=== PATIENT | male | born 1975 | race Caucasian/White ===

== ENCOUNTER 2019-11-01 11:53 | Emergency (ER) | payer OTHER, SELFPAY ==
[~2019-11-01] VITALS: Ht 177.8 cm; Wt 73.8 kg
--- NOTE | 2019-11-01 12:12 | NUR ---
Pt here for difficulty swallowing and pain swallowing. Pt reports no trauma but did report that he had food stuck in his throat 9 months ago and needed a procedure to remove it but never followed up with his GI. Pt reports hx of asthma and has no other complaints. Pt has even unlabored respirations and no abnormal breathing sounds heard from airway at this time.
[2019-11-01] MEDS ORDERED: FAMOTIDINE 20 MG TABLET ONE (12:51)
--- NOTE | 2019-11-01 12:53 | NUR ---
PT MEDICATED PER EMAR. PT TOLERATED WELL.
[2019-11-01] MEDS ORDERED: FAMOTIDINE 20 MG TABLET PO ONE (13:00)
--- NOTE | 2019-11-01 13:05 | NUR ---
PT IN XRAY AT THIS TIME.
--- NOTE | 2019-11-01 13:14 | NUR ---
PT BACK TO ROOM FROM XRAY AT THIS TIME.
--- NOTE | 2019-11-01 13:18 | NUR ---
lab at bedside.
[2019-11-01 13:32] LABS: BASOPHILS # (AUTO) 0.04 x10^3/uL (0-0.1); BASOPHILS % (AUTO) 0 % (0-1); EOSINOPHILS # (AUTO) 0.25 x10^3/uL (0-0.4); EOSINOPHILS % (AUTO) 3 % (1-7); LYMPHOCYTES # (AUTO) 1.36 x10^3/uL (1-3.4); LYMPHOCYTES % (AUTO) 15 % (22-44); MD NO; MEAN CORPUSCULAR HEMOGLOBIN 31.4 pg (27.5-34.5); MEAN CORPUSCULAR HGB CONC 33.5 g/dL (33.2-36.2); MEAN CORPUSCULAR VOLUME 93.7 fL (81-97); MEAN PLATELET VOLUME 8.5 fL (7.4-10.4); MONOCYTES # (AUTO) 0.79 x10^3/uL (0.2-0.8); MONOCYTES % (AUTO) 9 % (2-9); NEUTROPHILS # (AUTO) 6.72 x10^3/uL (1.8-6.8); NEUTROPHILS % (AUTO) 73 % (42-75); PLATELET COUNT 190 x10^3/uL (130-400); RED BLOOD COUNT 5.05 x10^6/uL (4.38-5.82); RED CELL DISTRIBUTION WIDTH 12.8 % (9.4-14.8)
[2019-11-01 13:43] LABS: ANION GAP 3 mmol/L (5-15); CALCIUM 9.3 mg/dL (8.5-10.1); CHLORIDE 106 mmol/L (98-107); CREATININE 1.08 mg/dL (0.7-1.3)
[2019-11-01 13:46] LABS: TROPONIN I < 0.015 ng/mL (0.000-0.045)
[2019-11-01 13:47] VITALS: BP 126/87
--- NOTE | 2019-11-01 13:56 | NUR ---
EDMD AT BEDSIDE TO EXPLAIN ALL RESULTS AT THIS TIME.
[2019-11-01] MEDS ORDERED: OMNIPAQUE 350 MG/ML, 150 ML BOTTLE ONE (14:22)
--- NOTE | 2019-11-01 14:22 | NUR ---
Patient given discharge instructions and they have confirmed that they understand the instructions. Patient ambulatory with steady gait.
== END 2019-11-01 14:23 | disposition home or self-care (01) ==
LOC: ED 13:23
DX: K21.9 Gastro-esophageal reflux disease without esophagitis (principal); F10.20 Alcohol dependence, uncomplicated; R09.89 Other specified symptoms and signs involving the circulatory and respiratory systems; R94.31 Abnormal electrocardiogram [ECG] [EKG]
CPT/HCPCS: 36415; 74220; 80048; 84484; 85025; 93005; 99285; Q9967